=== PATIENT | female | born 2000 | race Two or more races ===

== ENCOUNTER 2018-09-01 21:36 | Emergency (ER) | payer OTHER ==
[2018-09-01] MEDS ORDERED: NS 0.9% 1000 ML** 1,000 ML IV ONE (22:20)
[2018-09-01] MEDS ORDERED: Ondansetron INJ* 2 MG/ML VIAL IV ONE (22:20)
[2018-09-01] MEDS ORDERED: Ondansetron INJ* 2 MG/ML VIAL ONE (22:22)
[2018-09-01 22:46] LABS: Influenza A Molecular NEGATIVE (Negative); Influenza B Molecular NEGATIVE (Negative)
--- NOTE | 2018-09-01 22:47 | ED ---
GI/ HPI - HPI Summary HPI Summary: 17 year old female presents with nausea and vomiting today. she was traveling back from [facility] when she develop it. no abd pain. No diarrhea. admits to occasional dry cough. No chest pain or shortness breath. No sore throat. Denies any sinus congestion. did not eat anything different. Friends are sick with similar symptoms. No urinary symptoms. Has no medical conditions. Has not tried anything for symptoms. - History of Current Complaint Chief Complaint: EDNauseaVomitDiarrh Time Seen by Provider: 09/01/18 22:15 Stated Complaint: NAUSEA Pain Intensity: 0 - Allergy/Home Medications Allergies/Adverse Reactions: Allergies Allergy/AdvReac Type Severity Reaction Status Date / Time No Known Allergies Allergy Verified 09/01/18 21:49 PMH/Surg Hx/FS Hx/Imm Hx Endocrine/Hematology History: Denies: Hx Anticoagulant Therapy Cardiovascular History: Denies: Hx Myocardial Infarction Infectious Disease History: No Infectious Disease History: Denies: Traveled Outside the in Last 30 Days - Family History Known Family History: Positive: Non-Contributory - Social History Alcohol Use: Rare Substance Use Type: Reports: None Smoking Status (MU): Never Smoked Tobacco Review of Systems Negative: Fever Negative: Chest Pain Negative: Shortness Of Breath Positive: Vomiting, Nausea. Negative: Abdominal Pain, Diarrhea All Other Systems Reviewed And Are Negative: Yes Physical Exam Triage Information Reviewed: Yes Vital Signs On Initial Exam: Initial Vitals Temp Pulse Resp BP Pulse Ox 97.2 F 77 16 104/63 96 09/01/18 21:48 09/01/18 21:48 09/01/18 21:48 09/01/18 21:48 09/01/18 21:48 Vital Signs Reviewed: Yes Appearance: Positive: Well-Appearing Skin: Positive: Warm, Dry Head/Face: Positive: Normal Head/Face Inspection Eyes: Positive: Normal, EOMI, CRESENCIO, Conjunctiva Clear ENT: Positive: Normal ENT inspection, Pharynx normal, TMs normal Respiratory/Lung Sounds: Positive: Clear to Auscultation, Breath Sounds Present Cardiovascular: Positive: Normal, RRR Abdomen Description: Positive: Nontender, Soft Bowel Sounds: Positive: Present Musculoskeletal: Positive: Normal Neurological: Positive: Normal Psychiatric: Positive: Normal Diagnostics - Vital Signs Vital Signs Temp Pulse Resp BP Pulse Ox 09/01/18 22:21 80 98 09/01/18 22:19 86 125/77 98 09/01/18 21:48 97.2 F 77 16 104/63 96 - Laboratory Lab Results: Lab Results 09/01/18 Range/Units 22:33 Influenza A (Rapid) Negative (Negative) Influenza B (Rapid) Negative (Negative) Result Diagrams: 09/01/18 22:46 09/01/18 22:46 Lab Statement: Any lab studies that have been ordered have been reviewed, and results considered in the medical decision making process. Re-Evaluation - Re-Evaluation First Eval Re-Evaluation Time: 23:30 Change: Improved Comment: no longer nausous GIGU Course/Dx - Course Course Of Treatment: 17 year old female presents with nausea and vomiting today. she was traveling back from [facility] [place] [facility] when she develop it. no abd pain. No diarrhea. admits to occasional dry cough. No chest pain or shortness breath. No sore throat. Denies any sinus congestion. did not eat anything different. Friends are sick with similar symptoms. No urinary symptoms. Has no medical conditions. Has not tried anything for symptoms. On exam is nontender abd. lung clear to auscultation. wbc normal. CRP normal. Gave fluids and Zofran feeling better. will discharge with zofran. patient understand and agrees with plan. - Diagnoses Differential Diagnoses - Female: Gastroenteritis (Viral), Gastroenteritis ( Bacterial), Urinary Tract Infection Provider Diagnoses: Vomiting Discharge - Sign-Out/Discharge Documenting (check all that apply): Patient Departure Patient Received Moderate/Deep Sedation with Procedure: No - Discharge Plan Condition: Good Disposition: HOME Prescriptions: Ondansetron ODT TAB* [Zofran 4 MG Odt TAB*] 4 mg PO Q6H PRN #12 tab.odt PRN Reason: Nausea Patient Education Materials: Acute Nausea and Vomiting (ED) Forms: *School Release Referrals: No Primary Care Phys,NOPCP [Primary Care Provider] - Additional Instructions: Can take Zofran every 6 hours as needed for nausea Drink small amounts of fluid as tolerated When able to eat follow BRAT diet: Bananas, rice, applesauce, toast Take ibuprofen or Tylenol for pain as needed every 6 hours Follow up with primary within 5 days Return to ED if develop fever that does not respond to Tylenol or ibuprofen, severe abdominal pain, or any new or worsening symptoms - Billing Disposition and Condition Condition: GOOD Disposition: Home
[2018-09-01 22:52] LABS: ABS Basophils 0 10^3/ul (0-0.2); ABS Eosinophils 0 10^3/ul (0-0.6); ABS Lymphocytes 1.6 10^3/ul (1.0-4.8); ABS Monocytes 0.3 10^3/ul (0-0.8); ABS Neutrophils 4.1 10^3/ul (1.5-7.7); ABS Nucleated RBC 0 10^3/ul; Eosinophil % 0.3 %; Hematocrit 38 % (35-47); Hemoglobin 12.6 g/dl (12.0-16.0); Lymphocyte % 26.7 %; Mean Corpuscular HGB Conc 33 g/dl (31-36); Mean Corpuscular Hemoglobin 28 pg (27-31); Mean Corpuscular Volume 86 fL (80-97); Mean Platelet Volume 7.1 fL (7.4-10.4); Nucleated Red Blood Cells % 0; Platelet Count 275 10^3/ul (150-450); Red Blood Count 4.46 10^6/ul (4.00-5.40); Red Cell Distribution Width 13 % (10.5-15); White Blood Count 6.1 10^3/ul (3.5-10.8)
[2018-09-01 23:10] LABS: ALT 12 U/L (7-52); AST 22 U/L (13-39); Albumin 4.3 g/dL (3.2-5.2); Albumin/Globulin Ratio 1.5 (1-3); Alkaline Phosphatase 58 U/L (34-104); Anion Gap 8 mmol/L (2-11); BUN/Creatinine Ratio 14.5 (8-20); Blood Urea Nitrogen 9 mg/dL (6-24); C Reactive Protein 1.21 mg/L (<8.01); CO2 Carbon Dioxide 23 mmol/L (22-32); Chloride 106 mmol/L (101-111); Globulin 2.9 g/dL (2-4); Glucose 88 mg/dL (70-100); Sodium 137 mmol/L (135-145); Total Protein 7.2 g/dL (6.4-8.9)
[2018-09-01 23:15] LABS: HCG Pregnancy < 0.60 mIU/mL
[2018-09-01] MEDS ORDERED: Ondansetron ODT TAB* 4 MG PO ONE (23:31)
[2018-09-02 00:15] VITALS: BP 99/81
== END 2018-09-02 00:14 | disposition home or self-care (01) ==
LOC: ED 21:36
DX: R11.2 Nausea with vomiting, unspecified (principal)
CPT/HCPCS: 36415; 80053; 80320; 83690; 84702; 85025; 86140; 96374; 99284; G0480; J2405